=== PATIENT | female | born 1945 | race Caucasian/White ===

== ENCOUNTER 2019-05-17 00:19 | Outpatient (CLI) | payer OTHER, SELFPAY ==
--- NOTE | 2019-05-17 08:15 | MERGEMPI_ITS ---
*[facility]* *[facility]* [address] [place] [address] Myocardial Perfusion Imaging - SPECT Regadenoson Date of study: 05/17/2019 *PATIENT PRESENTATION* Height: 154.9cm (61in) Blood Pressure: Weight: 53.2kg (117lb) BSA: 1.52m^2 Referring physician: Shahzad Guo MD Ordering physician: Chrissy Cali Impressions: - Normal perfusion by Tc99m Sestamibi Imaging. - Abnormal contraction consistent with cardiomyopathy. Summary: 1. Myocardial perfusion imaging: No myocardial perfusion defects noted. 2. The calculated left ventricular ejection fraction after stress: 27%. Diffuse left ventricular regional motion abnormalities. There is dyskinesis involving the septal wall(s) of the left ventricle. There is akinesis involving the apical wall(s) of the left ventricle. Indication: I44.7. History: REASON FOR TESTING: ER VISIT IN [place] 2 WEEKS AGO FOR CHEST PAIN. NEW LEFT BUNDLE BRANCH BLOCK PMH: CLL, HYPERTENSION, CHF, SCIATICA. FAMILY HX: FATHER- CHF, MOTHER-CABG. BROTHER AND SISTER CAD-. LIVING SISTER AND BROTHER-HYPERTENSION SMOKING: NEVER SMOKER. EXCERCISE: NO REGULAR EXCERCISE CURRENTLY. NO RECORDS AVAILABLE FORM [place] AT THIS TIME. Risk factors: Family history of coronary artery disease. Hypertension. ALLERGIES: CODEINE, MORPHINE. ENVIRONMENTAL. MEDICATIONS: FUROSEMIDE 20 MG DAILY, LISINOPRIL 1.25 MG DAILY, RANITIDIEN 150 MG DAILY. Imaging Technique: Protocol: TriQ Systemsadenoson. Acquisition: Gated SPECT; 1 day - rest/stress. The patient was imaged in the supine position. Attenuation correction used. Isotope administration: - Rest. Tc[99m]-sestamibi. Dose: 10.3mCi. Injection time: 08:20 AM. Injection to stress time: 00:45. - Stress. Tc[99m]-sestamibi. Dose: 30.1mCi. Injection time: 11:10 AM. 1-2 min before end of exercise Baseline ECG: NO PREVIOUS EKG AVAILABLE , TODAY'S EKG-SINUS RHTYHM, LEFT BUNDLE BRANCH BLOCK, IVCD. Stress protocol: +--------+---+ + + !Stage !HR !BP (mmHg) !Comments ! +--------+---+ + + !Baseline!72 !126/62 (83)! ! +--------+---+ + + !1 min !---! !Inject Regadenoson.! +--------+---+ + + !2 min !126!142/64 (90)! ! +--------+---+ + + !3 min !119!132/64 (87)! ! +--------+---+ + + !6 min !115!124/64 (84)! ! +--------+---+ + + !9 min !111!140/68 (92)! ! +--------+---+ + + * Stress results: The rate-pressure product for the peak heart rate and blood pressure was 84876md Hg/min. Stress ECG: MEDICATION TESTING ENDED IN 9 MINS EFFECT OF LEXISCAN NO LONGER PRESENT. MAX HR WAS 128, WITH A HYPERTENSIVE BLOOD PRESSURE RESPONSE. ECTOPY: OCCASIONAL PVC'S NOTED. ANGINA: NO [id number] CHEST PAIN OR PRESSURE, DID REPORT LEFT HAND ACHING AT END OF TESTING. PT EXTREMELY ANXIOUS THROUGHOUT TESTING. ISCEMIA: SLIGHT ST DEPRESSIONS NOTED IN LEADS II, III, AVF, AND V3-V6. THESE DID RESOLVE TO MINIMAL DEPRESSIONS BY END OF TESTING. Myocardial perfusion: Imaging information: gated. No myocardial perfusion defects noted. Ventricular Function (Wall Motion): The calculated left ventricular ejection fraction after stress: 27%. Diffuse left ventricular regional motion abnormalities. There is dyskinesis involving the septal wall(s) of the left ventricle. There is akinesis involving the apical wall(s) of the left ventricle. Study data: Shahzad Guo MD supervised and was readily available during the procedure. This study was interpreted by [facility]. Study status: Routine. Consent: The risks, benefits, and alternatives to the procedure were explained to the patient and informed consent was obtained. Procedure: Initial setup. A baseline ECG was recorded. Surface ECG leads and manual cuff blood pressure measurements were monitored. Heart sounds: Normal. Lung sounds: Normal. Regadenoson stress test. Stress testing was performed, with regadenoson by intravenous bolus, for a total dose of 0.4mgover 10.00sec, followed by a 5ml saline flush. The infusion was terminated due to per protocol. The patient was unable to exercise due to left bundle branch block. Study completion: All catheters inserted during the procedure were removed. The patient tolerated the procedure well and was discharged from the lab. Discharge: The patient left the laboratory in stable condition. Birthdate: Patient birthdate: 1945. Sex: Gender: female. Study date: Study date: 05/17/2019. Study time: 00:01 AM. Electronically signed by Shahzad Guo MD 05/17/2019 16:57
[2019-05-17] MEDS: Regadenoson 0.4 MG/5 ML SYR IVP (11:37)
== END 2019-05-17 00:39 ==
PROVIDERS: Visit Provider Registered Nurse
DX: I44.7 Left bundle-branch block, unspecified (principal); R07.9 Chest pain, unspecified; I42.9 Cardiomyopathy, unspecified; I50.9 Heart failure, unspecified; I10 Essential (primary) hypertension; Z82.49 Family history of ischemic heart disease and other diseases of the circulatory system
CPT/HCPCS: 78452; 93016; 93018; 93017; J2785

== ENCOUNTER 2019-06-14 08:15 | Outpatient (CLI) | payer OTHER, SELFPAY | END 2019-06-14 08:35 | PROVIDERS: Visit Provider Nurse Anesthetist, Certified Registered | DX: I42.9 Cardiomyopathy, unspecified (principal); I10 Essential (primary) hypertension | CPT/HCPCS: 99204; 93005; 93010 ==

== ENCOUNTER 2019-08-02 07:53 | Outpatient (CLI) | payer OTHER, SELFPAY | END 2019-08-02 08:13 | PROVIDERS: Visit Provider Internal Medicine Interventional Cardiology | DX: I42.9 Cardiomyopathy, unspecified (principal); I10 Essential (primary) hypertension; I44.7 Left bundle-branch block, unspecified | CPT/HCPCS: 93005; 93010; 99213 ==

== ENCOUNTER 2019-08-02 10:34 | Outpatient (CLI) | payer OTHER, SELFPAY ==
[2019-08-02 11:10] LABS: HCT 36.8 % (36.0-46.0); HGB 11.8 g/dL (12.0-15.5); Mean Corp. HGB Concentration 32.1 g/dL (32.0-36.0); Mean Corpuscular Hemoglobin 30.6 pg (27.0-33.0); Mean Corpuscular Volume 95.3 fL (80-95); Mean Platelet Volume 10.7 fL (8.0-11.0); Platelet Count 105 x1000/uL (130-400); RBC 3.86 m/cumm (4.00-5.20); RBC Distribution Width 15.1 % (11.7-14.6)
[2019-08-02 12:26] LABS: White Blood Cell Count 83.19 k/cumm (4.4-10.8)
[2019-08-02 12:53] LABS: Anion Gap 7.9 mmol/L (3-11); BUN 15 mg/dL (7-18); CO2 29.1 mmol/L (21.0-32.0); CREATININE 0.62 mg/dL (0.55-1.02); Calcium 8.9 mg/dL (8.5-10.1); Chloride 102 mmol/L (98-107); Glucose 102 mg/dL (70-100); Potassium 4.7 mmol/L (3.5-5.1); Sodium 139 mmol/L (136-145)
== END 2019-08-02 10:54 ==
PROVIDERS: PCP Registered Nurse; Visit Provider Internal Medicine Interventional Cardiology
DX: I42.9 Cardiomyopathy, unspecified (principal); R06.09 Other forms of dyspnea
CPT/HCPCS: 36415; 80048; 85027

== ENCOUNTER 2023-04-09 08:47 | Outpatient (CLI) | payer MEDICARE, SELFPAY ==
--- NOTE | 2023-04-09 08:45 | RT.EKG_ITS ---
APPROVED REPORT Exam: Resting ECG Reason for Exam: pacemaker, JOSE Patient Location: O HR:77 bpm ECG Measurements Heart Rate 77 AXIS VA [id number] P 0 QRSd 160 QRS -64 QT 478 T 254 QTc 542 Conclusion Ventricular-paced complexes...other complexes also detected No further analysis attempted due to paced rhythm
== END 2023-04-09 08:48 | disposition home or self-care (01) ==
LOC: DI.CARD 08:48
PROVIDERS: PCP Family Medicine; Visit Provider Internal Medicine Cardiovascular Disease
DX: I49.9 Cardiac arrhythmia, unspecified (principal); R06.09 Other forms of dyspnea; Z95.0 Presence of cardiac pacemaker
CPT/HCPCS: 93010

== ENCOUNTER → 2023-04-09 09:47 | Outpatient (BNVA) | payer MEDICARE, SELFPAY | PROVIDERS: PCP Family Medicine; Referring Provider Family Medicine; Visit Provider Internal Medicine Cardiovascular Disease | DX: Z45.010 Encounter for checking and testing of cardiac pacemaker pulse generator [battery] (principal); I48.91 Unspecified atrial fibrillation; I10 Essential (primary) hypertension; I42.9 Cardiomyopathy, unspecified | CPT/HCPCS: 93005; 93279; 93280; 99213 ==

== ENCOUNTER 2023-08-06 12:42 | Outpatient (CLI) | payer MEDICARE, SELFPAY ==
--- NOTE | 2023-08-06 12:45 | RT.EKG_ITS ---
APPROVED REPORT Exam: Resting ECG Reason for Exam: cardiac arrythmia Patient Location: O HR:72 bpm ECG Measurements Heart Rate 72 AXIS [place] 216 P 72 QRSd 150 QRS -83 QT 416 T 78 QTc 456 Conclusion Atrial-sensed ventricular-paced rhythm...ventricular pacing tracks p-waves No further analysis attempted due to paced rhythm
== END 2023-08-06 12:43 | disposition home or self-care (01) ==
LOC: DI.CARD 13:00
PROVIDERS: PCP Family Medicine; Referring Provider Family Medicine; Visit Provider Internal Medicine Cardiovascular Disease
DX: I44.7 Left bundle-branch block, unspecified (principal); I49.9 Cardiac arrhythmia, unspecified
CPT/HCPCS: 93010

== ENCOUNTER → 2023-08-06 12:42 | Outpatient (BNVA) | payer MEDICARE, SELFPAY | PROVIDERS: PCP Family Medicine; Referring Provider Family Medicine; Visit Provider Internal Medicine Cardiovascular Disease | DX: Z45.018 Encounter for adjustment and management of other part of cardiac pacemaker (principal); I42.9 Cardiomyopathy, unspecified | CPT/HCPCS: 93005; 93281 ==

== ENCOUNTER → 2024-08-04 10:26 | Outpatient (BNVA) | payer OTHER, SELFPAY | PROVIDERS: PCP Family Medicine; Referring Provider Family Medicine; Visit Provider Internal Medicine Cardiovascular Disease | DX: Z95.810 Presence of automatic (implantable) cardiac defibrillator (principal) | CPT/HCPCS: 93281 ==

== ENCOUNTER 2025-08-03 07:58 | Outpatient (CLI) | payer MEDICARE, SELFPAY ==
--- NOTE | 2025-08-03 07:45 | RT.EKG_ITS ---
APPROVED REPORT Exam: Resting ECG Reason for Exam: cardiac arrhythmia Patient Location: O HR:80 bpm ECG Measurements Heart Rate 80 AXIS [place] 167 P 92 QRSd 153 QRS -83 QT 400 T 83 QTc 462 Conclusion Ventricular-paced rhythm No further analysis attempted due to paced rhythm Baseline wander in lead(s) III,aVL
== END 2025-08-03 07:59 | disposition home or self-care (01) ==
LOC: DI.CARD 07:59
PROVIDERS: PCP Family Medicine; Visit Provider Internal Medicine Cardiovascular Disease
DX: I44.1 Atrioventricular block, second degree (principal); I49.9 Cardiac arrhythmia, unspecified
CPT/HCPCS: 93010

== ENCOUNTER → 2025-08-03 10:41 | Outpatient (BNVA) | payer MEDICARE, OTHER, SELFPAY | PROVIDERS: PCP Family Medicine; Referring Provider Family Medicine; Visit Provider Registered Nurse | DX: I44.1 Atrioventricular block, second degree (principal); I49.9 Cardiac arrhythmia, unspecified; Z45.018 Encounter for adjustment and management of other part of cardiac pacemaker; Z79.01 Long term (current) use of anticoagulants; Z79.811 Long term (current) use of aromatase inhibitors | CPT/HCPCS: 93281; 93005 ==